=== PATIENT | female | born 2000 | race Hispanic/Latino ===

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

== ENCOUNTER 2022-06-25 13:31 | Emergency (ER) | payer MEDICAID ==
[~2022-06-25] VITALS: Ht 147.3 cm; Wt 45.4 kg
[~2022-06-25 13:31] MED LIST: AZIT250T9 PO; IBUP-2070 PO; PSEU120T62 PO
[2022-06-25 13:32] VITALS: BP 121/79
[2022-06-25] MEDS ORDERED: ACETAMINOPHEN 500 MG TABLET PO ONE (15:00)
== END 2022-06-25 15:46 | disposition home or self-care (01) ==
LOC: EDH 13:31
DX: S92.902A Unspecified fracture of left foot, initial encounter for closed fracture (principal); Z79.1 Long term (current) use of non-steroidal anti-inflammatories (NSAID); Z79.2 Long term (current) use of antibiotics; Z79.899 Other long term (current) drug therapy; Z88.1 Allergy status to other antibiotic agents; X50.1XXA Overexertion from prolonged static or awkward postures, initial encounter; Y93.89 Activity, other specified; Y92.89 Other specified places as the place of occurrence of the external cause; Y99.8 Other external cause status
CPT/HCPCS: 29515; 73620

== ENCOUNTER 2022-10-23 22:27 | Emergency (ER) | payer MEDICAID ==
[~2022-10-23] VITALS: Ht 144.8 cm; Wt 45.0 kg
[2022-10-23 22:58] VITALS: BP 128/78
[2022-10-23 23:10] LABS: APPEARANCE,URINE CLOUDY (CLEAR); BILIRUBIN,URINE NEGATIVE (NEGATIVE); COLOR,URINE LIGHT-YELLOW (YELLOW); GLUCOSE, URINE (UA) NEGATIVE (NEGATIVE); KETONES,URINE NEGATIVE (NEGATIVE); LEUKOCYTE ESTERASE ,URINE 500 Leu/uL (NEGATIVE); NITRATE,URINE NEGATIVE (NEGATIVE); OCCULT BLOOD,URINE SMALL (NEGATIVE); PROTEIN,URINE 50 mg/dL (NEGATIVE); UROBILINOGEN,URINE 0.2 mg/dL (0.2-1.0)
[2022-10-23 23:14] LABS: MUCUS,URINE RARE LPF (None Seen); RBC,URINE 26-50 /HPF (0-1); SQUAMOUS EPITHELIAL CELL,UR FEW /HPF (0-2); WBC,URINE TNTC /HPF (0-1)
[2022-10-23] MEDS ORDERED: MACR100 PO (23:44)
== END 2022-10-24 00:12 | disposition home or self-care (01) ==
LOC: EDH 22:27
DX: N39.0 Urinary tract infection, site not specified (principal); Z88.1 Allergy status to other antibiotic agents
CPT/HCPCS: 81001; 81025; 87077; 87088; 87186

== ENCOUNTER 2022-11-25 23:16 | Emergency (ER) | payer MEDICAID ==
[~2022-11-25] VITALS: Ht 147.3 cm; Wt 40.8 kg
[~2022-11-25 23:16] MED LIST changes: +MACR100 PO
[2022-11-25 23:21] VITALS: O2SAT 98
[2022-11-25 23:22] VITALS: BP 98/56; PULSE 107; RESP 18
[2022-11-26] LABS: RAPID GROUP A STREP negative (NEGATIVE)
[2022-11-26 00:05] LABS: SARS-CoV-2, RNA, NAAT NEGATIVE SARS CoV-2 (NEGATIVE)
[2022-11-26 00:09] LABS: INFLUENZA TYPE A Negative For Type A (NEGATIVE); INFLUENZA TYPE B Negative For Type B (NEGATIVE)
== END 2022-11-26 00:19 | disposition home or self-care (01) ==
LOC: EDH 23:16
DX: J06.9 Acute upper respiratory infection, unspecified (principal); Z88.1 Allergy status to other antibiotic agents; Z20.822 Contact with and (suspected) exposure to COVID-19
CPT/HCPCS: 99283; 87635; 87880; 87804 ×2; C9803

== ENCOUNTER 2023-09-21 20:51 | Emergency (ER) | payer MEDICAID ==
[~2023-09-21] VITALS: Ht 147.3 cm; Wt 44.5 kg
[2023-09-21 21:25] LABS: HCG,QUALITATIVE URINE POSITIVE (NEGATIVE)
[2023-09-21 21:26] LABS: APPEARANCE,URINE CLOUDY (CLEAR); BILIRUBIN,URINE NEGATIVE (NEGATIVE); COLOR,URINE LIGHT-YELLOW (YELLOW); GLUCOSE, URINE (UA) NEGATIVE (NEGATIVE); KETONES,URINE NEGATIVE (NEGATIVE); LEUKOCYTE ESTERASE ,URINE NEGATIVE Leu/uL (NEGATIVE); NITRATE,URINE NEGATIVE (NEGATIVE); OCCULT BLOOD,URINE NEGATIVE (NEGATIVE); PROTEIN,URINE NEGATIVE (NEGATIVE); UROBILINOGEN,URINE 0.2 mg/dL (0.2-1.0)
[2023-09-21 21:30] LABS: BACTERIA,URINE RARE /HPF (None Seen); MUCUS,URINE RARE LPF (None Seen); SQUAMOUS EPITHELIAL CELL,UR MOD /HPF (0-2); WBC CLUMP FEW /HPF (0-1); YEAST,URINE BUDDING MOD /HPF (None Seen)
[2023-09-21 22:59] VITALS: BP 112/65; PULSE 77; RESP 18; O2SAT 99
== END 2023-09-21 23:02 | disposition home or self-care (01) ==
LOC: EDH 20:53
DX: O26.891 Other specified pregnancy related conditions, first trimester (principal); R10.9 Unspecified abdominal pain; R10.2 Pelvic and perineal pain; Z88.1 Allergy status to other antibiotic agents
CPT/HCPCS: 36415; 76801; 81001; 81025; 84702; 87088

== ENCOUNTER 2024-02-24 12:57 | Emergency (ER) | payer MEDICAID ==
[~2024-02-24] VITALS: Ht 147.3 cm; Wt 56.7 kg
[~2024-02-24 12:57] MED LIST changes: +DOCU-116 PO; +DOXY1TAB3 PO; +ONDA-243 PO
[2024-02-24 14:27] VITALS: BP 103/59; PULSE 89; RESP 19; TEMP 98.5; O2SAT 96
[2024-02-24] MEDS: acetaMINOPHEN 500 MG TABLET PO ONE (14:48)
== END 2024-02-24 14:53 | disposition home or self-care (01) ==
LOC: EDH 12:57
DX: O9A.212 Injury, poisoning and certain other consequences of external causes complicating pregnancy, second trimester (principal); S93.491A Sprain of other ligament of right ankle, initial encounter; Z3A.25 25 weeks gestation of pregnancy; Z79.899 Other long term (current) drug therapy; Z88.1 Allergy status to other antibiotic agents; X50.1XXA Overexertion from prolonged static or awkward postures, initial encounter; Y93.89 Activity, other specified; Y92.89 Other specified places as the place of occurrence of the external cause; Y99.8 Other external cause status
CPT/HCPCS: 73610

== ENCOUNTER 2024-03-10 23:23 | Emergency (ER) | payer MEDICAID ==
[~2024-03-10] VITALS: Ht 147.3 cm; Wt 59.4 kg
[2024-03-10 23:54] LABS: SARS-CoV-2, RNA, NAAT NEGATIVE SARS CoV-2 (NEGATIVE)
[2024-03-10 23:56] LABS: RAPID GROUP A STREP negative (NEGATIVE)
[2024-03-11 00:02] LABS: INFLUENZA TYPE B Negative For Type B (NEGATIVE)
[2024-03-11 00:03] LABS: INFLUENZA TYPE A Positive For Type A (NEGATIVE)
[2024-03-11] MEDS ORDERED: OSEL75 PO (00:22)
--- NOTE | 2024-03-11 00:22 | ERN ---
ED Note History of Present Illness Stated Complaint: C/O COUGH, FEVER, SORE THROAT, HEADACHES, BODY ACH Chief Complaint: Cough Time Seen by MD: 23:30 Time Seen by Midlevel: 23:30 Dictation: The patient is a 23-year-old female with no past medical history who presents to the emergency department with complaints of cough, nasal congestion, sore throat, fever onset Sunday. Patient is28 weeks . G1 patient denies any abdominal pain, nausea or vomiting, vaginal bleeding or discharge. Allergies: Coded Allergies: cephalexin (Unverified Allergy, Unknown, 12/12/20) Home Meds Active Scripts Oseltamivir Phosphate (Tamiflu) 75 Mg Cap, 75 MG PO BID for 5 Days, #10 CAP Prov:CASTRO ANN SCIENCE PROFESSOR 03/11/24 Ondansetron (Ondansetron Odt) 4 Mg Tab.rapdis, 4 MG PO BID for 10 Days, #20 TAB Prov:NIKA LÓPEZ 10/13/23 Doxylamine/Pyridoxine HCl (Diclegis Dr 10-10 mg Tablet) 10 Mg-10 Mg Tablet.dr, 1 EACH PO TID for 10 Days, #30 TAB Prov:NIKA LÓPEZ 10/13/23 Docusate Sodium (Colace) 100 Mg Capsule, 100 MG PO TID for constipation for 10 Days, #30 CAP 0 Refills Prov:NIKA LÓPEZ 10/13/23 Nitrofurantoin/Nitrofuran Mac (Macrobid) 100 Mg Cap, 1 CAP PO BID for 7 Days, #14 CAP 0 Refills Prov:OFE MENDIETA [facility] 10/23/22 Pseudoephedrine HCl (Sudafed 12 Hour) 120 Mg Tablet.er, 120 MG PO BID for 5 Days, #10 TAB Prov:ELOISE BUCKLEY 12/12/20 Ibuprofen (Ibuprofen) 600 Mg Tablet, 600 MG PO Q6H PRN for PAIN, #15 TAB Prov:ELOISE BUCKLEY 12/12/20 Azithromycin (Azithromycin) 250 Mg Tablet, 250 MG PO DAILY for zpack for 5 Days, #6 TAB Prov:ELOISE BUCKLEY 12/12/20 Past Medical History Past Medical History: No Pertinent History Additional Past Medical Hx: SEASONAL ALLERGIES Surgical History: None Family History: Negative Social History: Negative LMP: August 27, 2023 : 1 Para: 0 Aborts: 0 RN Note Reviewed/Agreed w/PFSH: Yes Review of System Dictation Constitutional: Negative for chills, and weight loss positive for fever Eyes: Negative for injury, pain,redness, and discharge ENT: Negative for injury,pain or swelling positive for nasal congestion, sore throat Cardiovascular: Negative for chest pain, palpitations, and edema Respiratory: Negative for shortness of breath, and wheezing, positive for cough Abdomen/GI: Negative for abdominal pain, nausea, vomiting, diarrhea, and constipation Back: Negative for injury and pain : Negative for injury, bleeding and discharge MS/Extremity: Negative for injury and deformity Skin: Negative for rash, and discoloration Neuro: Negative for headache, weakness, numbness, tingling, and seizure Psych: Negative for suicide ideation, homicidal ideation, and hallucinations Initial Vital Sign VS Vital Signs Date Time Temp Pulse Resp B/P (MAP) Pulse Ox O2 Delivery O2 Flow Rate FiO2 03/10/24 23:28 98.2 102 20 115/72 96 Room Air Physical Exam Dictation Vital Signs reviewed General Appearance: Alert, oriented x 3, no acute distress, well developed, nourished. Head and Face: non-traumatic. Eyes: PERRL, pink conjunctivas, eyelid no trauma, anterior chamber with arcus senilis. Ears: Pinnas intact and no signs of trauma or erythema ear canals clear and no discharge TM no erythema Nose: No discharge, no bleeding. Oropharynx: Mouth normal, tongue pink. pharynx clear,no erythema, tonsils no exudates, no abscesses noted, mucous membrane moist Neck: Supple, non-tender, no thyromegaly, no masses, no JVD, no bruits Breast:Deferred Chest:No tenderness, no crepitus, no paradoxical movement, no retractions Lungs:Clear, well-ventilated, symmetric, no rales, no wheezing, no rhonchi, no stridor, good breath sounds bilaterally Heart: Regular rate, regular rhythm, no murmur, no gallops Vascular: no peripheral edema, Abdomen: Firm, positive bowel sounds, distended, no guarding, nontender, no rebound, no masses no hepatomegaly, no splenomegaly, no Maldonado's sign, no hernias. Rectal: Deferred Genital: Deferred Neurological: Normal speech, motor function intact, sensory function intact Musculoskeletal: Neck nontender, full range of motion, back nontender, full range of motion, Extremities: nontender, full range of motion Skin: Color pink, dry, no turgor, no rash, no lacerations, no abrasions, no contusions. Lymphatic: Deferred Results (Laboratory/Radiology) Laboratory/Radiology Laboratory Tests Test 03/10/24 23:30 Influenza Type A Antigen Positive For Type A Influenza Type B Antigen Negative For Type B SARS-CoV-2, RNA, NAAT NEGATIVE SARS CoV-2 Group A Streptococcus Rapid negative (NEGATIVE) Labs Reviewed?: Yes ED Course ED Course Orders Procedure Category Date Status Time Covid Rna Naat LAB 03/10/24 Complete 23:26 Influenza Type A & B, LAB 03/10/24 Complete Rapid 23:26 Rapid (Group A Strep) LAB 03/10/24 Complete 23:26 *Nursing CPOE 03/10/24 Transmitted Communication: 23:52 Oseltamivir Phosphate PHA 03/11/24 Complete (Tamiflu) 00:30 Current Medications Medications (Trade) Dose Ordered Sig/Jesica Route PRN Reason Start Time Stop Time Status Last Admin Dose Admin Oseltamivir Phosphate (Tamiflu) 75 mg ONCE ONCE PO 03/11/24 00:30 03/11/24 00:31 DC Vital Signs Date Time Temp Pulse Resp B/P (MAP) Pulse Ox O2 Delivery O2 Flow Rate FiO2 03/10/24 23:28 98.2 102 20 115/72 96 Room Air Medical Decision Making MDM The patient is a 23-year-old female with no past medical history who presents to the emergency department with complaints of cough, nasal congestion, sore throat, fever onset Sunday. Patient is28 weeks . G1 patient denies any abdominal pain, nausea or vomiting, vaginal bleeding or discharge. Patient tested positive for flu. Will be started on Tamiflu due to high-risk due to . heart tones 160. Patient in no acute distress. Stable vital signs. Differential diagnosis: COVID-19 infection, flu, strep Need for hospitalization: Patient does not meet criteria for hospitalization. There are no social concerns with this patient. DX & DISP Disposition: Discharge Departure Impression: Primary Impression: Influenza Additional Impression: Condition: Stable Scripts Oseltamivir Phosphate (Tamiflu) 75 Mg Cap 75 MG PO BID for 5 Days, #10 CAP Prov: CASTRO ANN SCIENCE PROFESSOR 03/11/24 Additional Instructions: You tested positive for flu A. You will be treated with Tamiflu. Take medications as prescribed. You may take Tylenol as needed for fevers. Please follow up with your OBGYN and PCP. Please return to ER if symptoms worsen. FOLLOW-UP WITH PRIMARY CARE PROVIDER IN 1 TO 2 DAYS. TAKE MEDICATIONS DIRECTED HERE IN THE EMERGENCY ROOM. OKAY TO CONTINUE HOME MEDICATIONS UNLESS OTHERWISE DISCUSSED DURING YOUR VISIT IN THE EMERGENCY ROOM TODAY. RETURN TO YOUR NEAREST EMERGENCY ROOM IF SYMPTOMS WORSEN OR IF THERE IS NO IMPROVEMENT. CALL 911 IF YOU NEED IMMEDIATE ASSISTANCE. TAKE TYLENOL [id number]-[id number] NEEDED AND IF NO CONTRAINDICATIONS ARE PRESENT. INCREASE ORAL HYDRATION. A WO UND CULTURE OR URINE CULTURE WAS ORDERED HERE IN THE EMERGENCY ROOM DEPARTMENT PLEASE FOLLOW-UP WITH PRIMARY CARE PROVIDER AND ADVISE THEM TO GET REPEAT PORTS FROM OUR FACILITY. IF YOU HAD ANY GAYATHRI WRAP/SPLINTS THAT WERE APPLIED HERE, PLEASE DO NOT REMOVE THEM UNTIL YOU SEE YOUR PRIMARY CARE OR SPECIALTY. Referrals: RODNEY FABIAN MD (PCP) Time of Disposition: 02:26 I have reviewed the case, and I agree with, Diagnosis and Plan CASTRO ANN SCIENCE PROFESSOR Mar 11, 2024 00:22
--- NOTE | 2024-03-11 02:21 | NUR ---
HEART BEAT AT 162
[2024-03-11 02:23] VITALS: BP 124/69; PULSE 98; RESP 20; TEMP 98; O2SAT 97
[2024-03-11] MEDS: OSELTAMIVIR PHOSPHATE 75 MG CAP PO ONE (02:34)
== END 2024-03-11 02:44 | disposition home or self-care (01) ==
LOC: EDH 23:23
DX: O98.513 Other viral diseases complicating pregnancy, third trimester (principal); J11.1 Influenza due to unidentified influenza virus with other respiratory manifestations; Z20.822 Contact with and (suspected) exposure to COVID-19; Z3A.28 28 weeks gestation of pregnancy; Z79.899 Other long term (current) drug therapy; Z88.1 Allergy status to other antibiotic agents
CPT/HCPCS: 87635; 87804; 87880; 99283

== ENCOUNTER 2024-03-25 23:15 | Observation (INO) | payer MEDICAID ==
[~2024-03-25] VITALS: Ht 147.3 cm; Wt 61.7 kg
[~2024-03-25 23:15] MED LIST changes: +OSEL75 PO
[2024-03-25 23:16] VITALS: BP 115/74; PULSE 95; RESP 20; TEMP 98.3
--- NOTE | 2024-03-25 23:22 | NUR ---
REPORT GIVEN TO CHAYA AT [facility]; PT IN STABLE CONDITION FOR TRANSPORT TO UNIT.
[2024-03-25 23:48] LABS: APPEARANCE,URINE CLEAR (CLEAR); BILIRUBIN,URINE NEGATIVE (NEGATIVE); COLOR,URINE LIGHT-YELLOW (YELLOW); GLUCOSE, URINE (UA) NEGATIVE (NEGATIVE); KETONES,URINE NEGATIVE (NEGATIVE); LEUKOCYTE ESTERASE ,URINE 25 Leu/uL (NEGATIVE); NITRATE,URINE NEGATIVE (NEGATIVE); OCCULT BLOOD,URINE NEGATIVE (NEGATIVE); PROTEIN,URINE NEGATIVE (NEGATIVE); UROBILINOGEN,URINE 0.2 mg/dL (0.2-1.0)
[2024-03-25 23:49] LABS: ADD UA MICROSCOPIC YES
[2024-03-25 23:52] LABS: MUCUS,URINE RARE LPF (None Seen); RBC,URINE 0-1 /HPF (0-1); SQUAMOUS EPITHELIAL CELL,UR FEW /HPF (0-2)
[2024-03-25 23:54] LABS: AMPHET/METH SCREEN,URINE NEGATIVE (NEGATIVE); BARBITURATE SCREEN, URINE NEGATIVE (NEGATIVE); BENZODIAZEPINES SCREEN,URINE NEGATIVE (NEGATIVE); CANNABINOID SCREEN,URINE NEGATIVE (NEGATIVE); COCAINE SCREEN,URINE NEGATIVE (NEGATIVE); OPIATE SCREEN,URINE NEGATIVE (NEGATIVE); PHENCYCLIDINE SCREEN,URINE NEGATIVE (NEGATIVE)
[2024-03-26] MEDS: LACTATED RINGERS 1000ML 1,000 ML IV SCH (00:10)
[2024-03-26 03:19] LABS: HEMATOCRIT 27.6 % (36-48); MEAN CORPUSCULAR HGB CONC 31.9 g/dL (32.0-36.0); MEAN CORPUSCULAR VOLUME 81.4 fL (80-100); RED BLOOD CELL COUNT(AUTO) 3.39 MIL/uL (4.00-5.50); RED CELL DISTRIBUTION WIDTH 15.9 % (11.0-15.5); WHITE BLOOD COUNT (AUTO) 13.5 K/uL (4.8-10.8)
[2024-03-26 03:52] LABS: HIV 1&2 ANTIBODY Non-Reactive (Negative)
[2024-03-26 03:54] LABS: HIV-1 p24 Antigen Non-Reactive (Negative)
[2024-03-26 16:11] LABS: RAPID PLASMA REAGIN NONREACTIVE (NONREACTIVE)
== END 2024-03-26 04:15 | disposition home or self-care (01) ==
LOC: EDH 23:15 → LDH 23:16
PROVIDERS: ADMIT Obstetrics & Gynecology; ATTEND Obstetrics & Gynecology
DX: O26.893 Other specified pregnancy related conditions, third trimester (principal); R10.31 Right lower quadrant pain; O99.891 Other specified diseases and conditions complicating pregnancy; M54.50 Low back pain, unspecified; Z3A.30 30 weeks gestation of pregnancy; Z79.899 Other long term (current) drug therapy; Z98.890 Other specified postprocedural states
CPT/HCPCS: 80305; 81001; 96372; 96361; 96360; 85027; 86592; 86850; 86900; 86901; 87340; 86701; 87390; 36415; G0378 ×5; G0379; J7120; J3105; 59025

== ENCOUNTER 2024-04-26 18:54 | Emergency (ER) | payer MEDICAID ==
[~2024-04-26] VITALS: Ht 147.3 cm; Wt 65.8 kg
[2024-04-26 19:52] LABS: BASOPHILS # (AUTO) 0.04 K/uL (0.00-0.20); BASOPHILS % (AUTO) 0.4 % (0.0-5.0); EOSINOPHILS # (AUTO) 0.35 K/uL (0.00-0.70); EOSINOPHILS % (AUTO) 3.2 % (0.0-8.0); HEMATOCRIT 28.3 % (36-48); IMMATURE GRANULOCYTE ABSOLUTE 0.16 K/uL (0-1); LYMPHOCYTES # (AUTO) 1.8 K/uL (1.0-4.8); MEAN CORPUSCULAR HEMOGLOBIN 24.1 pg (27.0-33.0); MEAN CORPUSCULAR HGB CONC 31.4 g/dL (32.0-36.0); MEAN CORPUSCULAR VOLUME 76.5 fL (80-100); MONOCYTES # (AUTO) 1.2 K/uL (0.1-1.0); MONOCYTES % (AUTO) 10.8 % (3.0-13.0); NEUTROPHILS # (AUTO) 7.3 K/uL (1.8-7.7); NEUTROPHILS % (AUTO) 67.1 % (40.0-77.0); PLATELET COUNT (AUTO) 360 K/uL (130-400); RED CELL DISTRIBUTION WIDTH 17.9 % (11.0-15.5); WHITE BLOOD COUNT (AUTO) 10.8 K/uL (4.8-10.8)
[2024-04-26 20:02] LABS: APPEARANCE,URINE CLEAR (CLEAR); BILIRUBIN,URINE NEGATIVE (NEGATIVE); COLOR,URINE LIGHT-YELLOW (YELLOW); GLUCOSE, URINE (UA) NEGATIVE (NEGATIVE); KETONES,URINE NEGATIVE (NEGATIVE); LEUKOCYTE ESTERASE ,URINE NEGATIVE Leu/uL (NEGATIVE); NITRATE,URINE NEGATIVE (NEGATIVE); OCCULT BLOOD,URINE NEGATIVE (NEGATIVE); PH,URINE 6.5 (5.0-8.0); PROTEIN,URINE NEGATIVE (NEGATIVE); UROBILINOGEN,URINE 0.2 mg/dL (0.2-1.0)
[2024-04-26 20:08] LABS: ADD UA MICROSCOPIC NO
[2024-04-26 20:21] LABS: CREATININE 0.5 mg/dL (0.5-1.0); MAGNESIUM 1.5 mg/dL (1.80-2.40); POTASSIUM 3.8 mmol/L (3.5-5.1)
--- NOTE | 2024-04-26 20:51 | ERN ---
General Chief Complaint: OB>20 weeks gest. Stated Complaint: SWELLING/TINGLING TO BUE, BLE X ONE MONTH Time Seen by MD: 19:29 Time Seen by Midlevel: 19:29 Source: patient History of Present Illness Initial Comments Patient is a 23-year-old female who is currently 34 weeks presenting to the emergency department with bilateral upper and lower extremity swelling/tingling. She was already seen her OBGYN for this issue and was told her symptoms were normal during this stage . Patient states that she was not believe this is normal and decided to report to the emergency department for further evaluation. On arrival she denies any focal weakness, dizziness, vision changes, headache, chest pain, shortness of breath, or any other symptoms at this time. Allergies: Coded Allergies: cephalexin (Unverified Allergy, Unknown, 03/25/24) Home Meds Active Scripts Oseltamivir Phosphate (Tamiflu) 75 Mg Cap, 75 MG PO BID for 5 Days, #10 CAP Prov:CASTRO ANN FIELD CONTROL INSPECTOR 03/11/24 Ondansetron (Ondansetron Odt) 4 Mg Tab.rapdis, 4 MG PO BID for 10 Days, #20 TAB Prov:NIKA LÓPEZ 10/13/23 Doxylamine/Pyridoxine HCl (Diclegis Dr 10-10 mg Tablet) 10 Mg-10 Mg Tablet.dr, 1 EACH PO TID for 10 Days, #30 TAB Prov:NIKA LÓPEZ 10/13/23 Docusate Sodium (Colace) 100 Mg Capsule, 100 MG PO TID for constipation for 10 Days, #30 CAP 0 Refills Prov:NIKA LÓPEZ 10/13/23 Nitrofurantoin/Nitrofuran Mac (Macrobid) 100 Mg Cap, 1 CAP PO BID for 7 Days, #14 CAP 0 Refills Prov:OFE MENDIETA FIELD CONTROL INSPECTOR 10/23/22 Pseudoephedrine HCl (Sudafed 12 Hour) 120 Mg Tablet.er, 120 MG PO BID for 5 Days, #10 TAB Prov:ELOISE BUCKLEY 12/12/20 Ibuprofen (Ibuprofen) 600 Mg Tablet, 600 MG PO Q6H PRN for PAIN, #15 TAB Prov:ELOISE BUCKLEY 12/12/20 Azithromycin (Azithromycin) 250 Mg Tablet, 250 MG PO DAILY for zpack for 5 Days, #6 TAB Prov:DUDLEYTALAVERACARLTONELOISE E BETINA 12/12/20 Past Medical History Past Medical History: No Pertinent History Medical History Other: SEASONAL ALLERGIES Past Surgical History: None Family History Family History: Negative Social History Social History: Negative Female( History) LMP: August 27, 2023 : 1 Para: 0 Aborts: 0 ROS Dictation CONSTITUTIONAL: Negative except for HPI HEAD/FACE: Negative except for HPI EENT: Negative except for HPI RESPIRATORY: Negative except for HPI GASTROINTESTINAL/ABDOMINAL: Negative except for HPI GENITOURINARY: Negative except for HPI MUSCULOSKELETAL: Negative except for HPI INTEGUMENTARY: Negative except for HPI NEUROLOGICAL/PSYCH: Negative except for HPI HEMATOLOGIC/LYMPHATIC: Negative except for HPI All Systems Negative, Except as noted above. 13 point review of systems assessed and all negative except for above. Physical Exam Physical Exam Dictation Vital Signs reviewed General Appearance: Alert, oriented x 3, no acute distress, well developed, nourished. Head and Face: non-traumatic. Eyes: PERRL, pink conjunctivas, eyelid no trauma, anterior chamber with arcus senilis. Ears: Pinnas intact and no signs of trauma or erythema ear canals clear and no discharge TM no erythema Nose: No discharge, no bleeding. Oropharynx: Mouth normal, tongue pink, pharynx clear,no erythema, tonsils no exudates, no abscesses noted, mucous membrane moist Neck: Supple, non-tender, no thyromegaly, no masses, no JVD, no bruits Breast:Deferred Chest:No tenderness, no crepitus, no paradoxical movement, no retractions Lungs:Clear, well-ventilated, symmetric, no rales, no wheezing, no rhonchi, no stridor, good breath sounds bilaterally Heart: Regular rate, regular rhythm, no murmur, no gallops Vascular: no peripheral edema, Abdomen: Soft, positive bowel sounds, nondistended, no guarding, nontender, no rebound, no masses no hepatomegaly, no splenomegaly, no Maldonado's sign, no hernias. Rectal: Deferred Genital: Deferred Neurological: Normal speech, motor function intact, sensory function intact Musculoskeletal: Neck nontender, full range of motion, back nontender, full range of motion, Extremities: nontender, full range of motion Skin: Color pink, dry, no turgor, no rash, no lacerations, no abrasions, no contusions. Lymphatic: Deferred Results Laboratory and Microbiology Lab and Micro Result Laboratory Tests Test 04/26/24 19:46 04/26/24 19:50 White Blood Count 10.8 K/uL (4.8-10.8) Red Blood Count 3.70 MIL/uL (4.00-5.50) L Hemoglobin 8.9 g/dL (12.0-16.0) L Hematocrit 28.3 % (36-48) L Mean Corpuscular Volume 76.5 fL (80-100) L Mean Corpuscular Hemoglobin 24.1 pg (27.0-33.0) L Mean Corpuscular Hemoglobin Concent 31.4 g/dL (32.0-36.0) L Red Cell Distribution Width 17.9 % (11.0-15.5) H Platelet Count 360 K/uL (130-400) Mean Platelet Volume 10.4 fL (7.5-10.5) Immature Granulocyte % (Auto) 1.5 % (0-1) H Neutrophils (%) (Auto) 67.1 % (40.0-77.0) Lymphocytes (%) (Auto) 17.0 % (21.0-51.0) L Monocytes (%) (Auto) 10.8 % (3.0-13.0) Eosinophils (%) (Auto) 3.2 % (0.0-8.0) Basophils (%) (Auto) 0.4 % (0.0-5.0) Neutrophils # (Auto) 7.3 K/uL (1.8-7.7) Lymphocytes # (Auto) 1.8 K/uL (1.0-4.8) Monocytes # (Auto) 1.2 K/uL (0.1-1.0) H Eosinophils # (Auto) 0.35 K/uL (0.00-0.70) Basophils # (Auto) 0.04 K/uL (0.00-0.20) Absolute Immature Granulocyte (auto 0.16 K/uL (0-1) Nucleated Red Blood Cells 1.0 % (0.0-0.19) H Red Blood Cell Morphology See comments Sodium Level 139 mmol/L (136-145) Potassium Level 3.8 mmol/L (3.5-5.1) Chloride Level 104 mmol/L (101-111) Carbon Dioxide Level 23 mmol/L (21-32) Blood Urea Nitrogen 6 mg/dL (7-18) L Creatinine 0.5 mg/dL (0.5-1.0) Glomerular Filtration Rate Calc 137 mL/min (>90) Random Glucose 109 mg/dL (70-105) H Total Calcium 9.2 mg/dL (8.5-10.1) Magnesium Level 1.50 mg/dL (1.80-2.40) L Urine Color LIGHT-YELLOW (YELLOW) Urine Appearance CLEAR (CLEAR) Urine pH 6.5 (5.0-8.0) Urine Specific [place] 1.012 (1.001-1.031) Urine Protein NEGATIVE mg/dL (NEGATIVE) Urine Glucose (UA) NEGATIVE mg/dL (NEGATIVE) Urine Ketones NEGATIVE mg/dL (NEGATIVE) Urine Occult Blood NEGATIVE (NEGATIVE) Urine Nitrate NEGATIVE (NEGATIVE) Urine Bilirubin NEGATIVE mg/dL (NEGATIVE) Urine Urobilinogen 0.2 mg/dL (0.2-1.0) Urine Leukocyte Esterase NEGATIVE Albaro/uL Labs Reviewed?: Yes MDM MDM: Patient is a 23-year-old female who is currently 34 weeks presenting to the emergency department with bilateral upper and lower extremity swelling/tingling. She was already seen her OBGYN for this issue and was told her symptoms were normal during this stage . Patient states that she was not believe this is normal and decided to report to the emergency department for further evaluation. On arrival she denies any focal weakness, dizziness, vision changes, headache, chest pain, shortness of breath, or any other symptoms at this time. On physical examination patient is in no acute distress. She was alert and oriented x4. There was no swelling to bilateral upper and lower extremities. Her CBC and chemistries unremarkable. Her magnesium level was slightly low at 1.5. 400 mg of p.o. magnesium was administered and patient was advised to follow up with your OBGYN or return to the ER for any new or worsening symptoms. She specifically denies any abdominal pain, cramping, vaginal bleeding, or any other abdominal complaints. Differential diagnosis: Dehydration, electrolyte abnormality, 3rd trimester There are no social concerns with this patient. Prescription drug management Prescriptions will include: None Medical management and examination interpretation discussions were had by me with other qualified healthcare professionals as indicated for the patient's care. ED Course Orders Procedure Category Date Status Time Cbc With Differential LAB 04/26/24 Complete 19:35 Basic Metabolic Panel LAB 04/26/24 Complete 19:35 Magnesium LAB 04/26/24 Complete 19:35 Urinalysis Profile LAB 04/26/24 Complete 19:35 Magnesium Oxide PHA 04/26/24 Complete (Mag-Ox) 21:00 Current Medications Medications (Trade) Dose Ordered Sig/Jesica Route PRN Reason Start Time Stop Time Status Last Admin Dose Admin Magnesium Oxide (Mag-Ox) 400 mg ONCE ONCE PO 04/26/24 21:00 04/26/24 21:01 DC 04/26/24 20:52 Vital Signs Date Time Temp Pulse Resp B/P (MAP) Pulse Ox O2 Delivery O2 Flow Rate FiO2 04/26/24 20:59 98.8 90 18 130/75 98 Room Air* 0 21 04/26/24 19:02 97.7 105 16 138/97 96 Room Air* 0 04/26/24 18:56 97.7 105 16 138/97 96 Room Air 0 DX & DISP Disposition: Discharge Departure Impression: Primary Impression: Third trimester Additional Impression: Hypomagnesemia Condition: Stable Additional Instructions: Your blood work today shows a low magnesium level. This was replaced in the emergency department. Follow up with the primary care doctor in 2-3 days for repeat evaluation. Return to the ER for any new or worsening symptoms There is an OBGYN in the [facility] that I highly recommend. Her name is Dr. Tessie Durbin Address: [address] [place] [id number] Referrals: RODNEY FABIAN MD (PCP) GERARDO VICTOR MD, JAROD MD Time of Disposition: 21:05 I have reviewed the case, and I agree with, Diagnosis and Plan I performed the substantive portion of the visit. I have reviewed and personally made and approve the management plan that is documented in the note by myself or the KYLE. I acknowledge for responsibility for the patient's management plan. NIKA LÓPEZ Apr 26, 2024 20:51
[2024-04-26] MEDS: MAGNESIUM OXIDE 400 MG TABLET PO ONE (20:52)
[2024-04-26 20:59] VITALS: BP 130/75; PULSE 90; RESP 18; TEMP 98.8; O2SAT 98
== END 2024-04-26 21:10 | disposition home or self-care (01) ==
LOC: EDH 18:54
DX: O99.283 Endocrine, nutritional and metabolic diseases complicating pregnancy, third trimester (principal); E83.42 Hypomagnesemia; Z3A.34 34 weeks gestation of pregnancy; Z79.899 Other long term (current) drug therapy; Z88.1 Allergy status to other antibiotic agents
CPT/HCPCS: 36415; 80048; 81003; 83735; 85025; 99283

== ENCOUNTER 2025-02-09 17:32 | Emergency (ER) | payer OTHER, MEDICAID ==
[~2025-02-09] VITALS: Ht 147.3 cm; Wt 59.0 kg
[~2025-02-09 17:32] MED LIST changes: +IBUP-1492 PO; -IBUP-2070 PO
--- NOTE | 2025-02-09 17:49 | ERN ---
ED Note History of Present Illness Stated Complaint: N/V, ABD CRAMPING Chief Complaint: Nausea,Vomiting,Diarrhea Time Seen by MD: 17:37 Time Seen by Midlevel: 17:37 Dictation: The patient is a 24-year old female with no past medical history who presents to the emergency department with complains of nausea and non bloody vomit onset this morning after eating egg. Patient reports epigastric pain. Denies any fevers, diarrhea or constipation. Allergies: Coded Allergies: cephalexin (Unverified Allergy, Unknown, 03/25/24) Home Meds Active Scripts Oseltamivir Phosphate (Tamiflu) 75 Mg Cap, 75 MG PO BID for 5 Days, #10 CAP Prov:CASTRO ANN CANARY BREEDER 03/11/24 Ondansetron (Ondansetron Odt) 4 Mg Tab.rapdis, 4 MG PO BID for 10 Days, #20 TAB Prov:NIKA LÓPEZ [facility] 10/13/23 Doxylamine/Pyridoxine HCl (Diclegis Dr 10-10 mg Tablet) 10 Mg-10 Mg Tablet.dr, 1 EACH PO TID for 10 Days, #30 TAB Prov:NIKA LÓPEZ [facility] 10/13/23 Docusate Sodium (Colace) 100 Mg Capsule, 100 MG PO TID for constipation for 10 Days, #30 CAP 0 Refills Prov:NIKA LÓPEZ [facility] 10/13/23 Nitrofurantoin/Nitrofuran Mac (Macrobid) 100 Mg Cap, 1 CAP PO BID for 7 Days, #14 CAP 0 Refills Prov:OFE MENDIETA [facility] 10/23/22 Pseudoephedrine HCl (Sudafed 12 Hour) 120 Mg Tablet.er, 120 MG PO BID for 5 Days, #10 TAB Prov:ELOISE BUCKLEY 12/12/20 Ibuprofen (Ibuprofen) 600 Mg Tablet, 600 MG PO Q6H PRN for PAIN, #15 TAB Prov:ELOISE BUCKLEY 12/12/20 Azithromycin (Azithromycin) 250 Mg Tablet, 250 MG PO DAILY for zpack for 5 Days, #6 TAB Prov:ELOISE BUCKLEY 12/12/20 Past Medical History Past Medical History: Sinusitis, Other Additional Past Medical Hx: SEASONAL ALLERGIES Surgical History: None Family History: Negative Social History: Negative LMP: Jan 15, 2025 : 1 Para: 0 Aborts: 0 RN Note Reviewed/Agreed w/PFSH: Yes Review of System Dictation Constitutional: Negative for fever,chills, and weight loss Eyes: Negative for injury, pain,redness, and discharge ENT: Negative for injury,pain or swelling Cardiovascular: Negative for chest pain, palpitations, and edema Respiratory: Negative for shortness of breath, cough, and wheezing, Abdomen/GI: Negative for diarrhea, and constipation positive for abdominal pain, nausea, vomiting Back: Negative for injury and pain : Negative for injury, bleeding and discharge MS/Extremity: Negative for injury and deformity Skin: Negative for rash, and discoloration Neuro: Negative for headache, weakness, numbness, tingling, and seizure Psych: Negative for suicide ideation, homicidal ideation, and hallucinations Initial Vital Sign VS Vital Signs Date Time Temp Pulse Resp B/P (MAP) Pulse Ox O2 Delivery O2 Flow Rate FiO2 02/09/25 17:33 98.8 119 20 123/77 98 Room Air 0 02/09/25 23:04 21 Physical Exam Dictation Vital Signs reviewed General Appearance: Alert, oriented x 3, no acute distress, well developed, nourished. Head and Face: non-traumatic. Eyes: PERRL, pink conjunctivas, eyelid no trauma, anterior chamber with arcus senilis. Ears: Pinnas intact and no signs of trauma or erythema ear canals clear and no discharge TM no erythema Nose: No discharge, no bleeding. Oropharynx: Mouth normal, tongue pink. pharynx clear,no erythema, tonsils no exudates, no abscesses noted, mucous membrane moist Neck: Supple, non-tender, no thyromegaly, no masses, no JVD, no bruits Breast:Deferred Chest:No tenderness, no crepitus, no paradoxical movement, no retractions Lungs:Clear, well-ventilated, symmetric, no rales, no wheezing, no rhonchi, no stridor, good breath sounds bilaterally Heart: Regular rate, regular rhythm, no murmur, no gallops Vascular: no peripheral edema, Abdomen: Soft, positive bowel sounds, nondistended, no guarding, nontender, no rebound, no masses no hepatomegaly, no splenomegaly, no Maldonado's sign, no hernias. Rectal: Deferred Genital: Deferred Neurological: Normal speech, motor function intact, sensory function intact Musculoskeletal: Neck nontender, full range of motion, back nontender, full range of motion, Extremities: nontender, full range of motion Skin: Color pink, dry, no turgor, no rash, no lacerations, no abrasions, no contusions. Lymphatic: Deferred Results (Laboratory/Radiology) Laboratory/Radiology Laboratory Tests Test 02/09/25 19:37 02/09/25 21:54 02/09/25 22:32 White Blood Count 16.4 K/uL (4.8-10.8) H Red Blood Count 4.84 MIL/uL (4.00-5.50) Hemoglobin 13.2 g/dL (12.0-16.0) Hematocrit 39.3 % (36-48) Mean Corpuscular Volume 81.2 fL (79-99) Mean Corpuscular Hemoglobin 27.3 pg (27.0-33.0) Mean Corpuscular Hemoglobin Concent 33.6 g/dL (32.0-36.0) Red Cell Distribution Width 16.9 % (11.0-15.5) H Platelet Count 342 K/uL (130-400) Mean Platelet Volume 9.6 fL (7.5-10.5) Immature Granulocyte % (Auto) 0.3 % (0-1) Neutrophils (%) (Auto) 93.6 % (40.0-77.0) H Lymphocytes (%) (Auto) 2.3 % (21.0-51.0) L Monocytes (%) (Auto) 2.6 % (3.0-13.0) L Eosinophils (%) (Auto) 1.1 % (0.0-8.0) Basophils (%) (Auto) 0.1 % (0.0-5.0) Neutrophils # (Auto) 15.4 K/uL (1.8-7.7) H Lymphocytes # (Auto) 0.4 K/uL (1.0-4.8) L Monocytes # (Auto) 0.4 K/uL (0.1-1.0) Eosinophils # (Auto) 0.18 K/uL (0.00-0.70) Basophils # (Auto) 0.02 K/uL (0.00-0.20) Absolute Immature Granulocyte (auto 0.05 K/uL (0-1) Nucleated Red Blood Cells 0.0 % (0.0-0.19) White Cell Morphology Comment See comments Sodium Level 141 mmol/L (136-145) Potassium Level 4.0 mmol/L (3.5-5.1) Chloride Level 101 mmol/L (101-111) Carbon Dioxide Level 26 mmol/L (21-32) Blood Urea Nitrogen 13 mg/dL (7-18) Creatinine 0.6 mg/dL (0.5-1.0) Glomerular Filtration Rate Calc 130 mL/min (>90) Random Glucose 106 mg/dL (70-105) H Total Calcium 8.5 mg/dL (8.5-10.1) Magnesium Level 1.70 mg/dL (1.80-2.40) L Total Bilirubin 0.7 mg/dL (0.2-1.0) Direct Bilirubin 0.1 mg/dL (0.0-0.3) Aspartate Amino Transf (AST/SGOT) 22 U/L (10-37) Alanine Aminotransferase (ALT/SGPT) 19 U/L (12-78) Alkaline Phosphatase 49 U/L (50-136) L Total Protein 8.0 g/dL (6.0-8.3) Albumin 3.6 g/dL (3.5-5.0) Lipase 26 U/L (16-77) Serum Test, Qualitative NEGATIVE (NEGATIVE) Lactic Acid Level 1.1 mmol/L (0.8-2.5) Urine Color YELLOW (YELLOW) Urine Appearance CLEAR (CLEAR) Urine pH 6.0 (5.0-8.0) Urine Specific Hopkins 1.030 (1.001-1.031) Urine Protein NEGATIVE mg/dL (NEGATIVE) Urine Glucose (UA) NEGATIVE mg/dL (NEGATIVE) Urine Ketones 60 mg/dL (NEGATIVE) H Urine Occult Blood NEGATIVE (NEGATIVE) Urine Nitrate NEGATIVE (NEGATIVE) Urine Bilirubin NEGATIVE mg/dL (NEGATIVE) Urine Urobilinogen 0.2 mg/dL (0.2-1.0) Urine Leukocyte Esterase NEGATIVE Albaro/uL Urine RBC 0-1 /HPF (0-1) Urine WBC 2-5 /HPF (0-1) H Urine Squamous Epithelial Cells RARE /HPF (0-2) Urine Bacteria None /HPF (None Seen) Urine Opiates Screen NEGATIVE (NEGATIVE) Urine Barbiturates Screen NEGATIVE (NEGATIVE) Urine Phencyclidine Screen NEGATIVE (NEGATIVE) Urine Amphetamines Screen NEGATIVE (NEGATIVE) Urine Benzodiazepines Screen NEGATIVE (NEGATIVE) Urine Cocaine Screen NEGATIVE (NEGATIVE) Urine Marijuana (THC) Screen NEGATIVE (NEGATIVE) REASON: Abdominal Pain ORDERING PHYSICIAN: CASTRO ANN PROCEDURE: ABD PEL W - CT ABDOMEN/PELVIS W/CONTRAST EXAM: CT Abdomen and Pelvis with IV contrast CLINICAL HISTORY: Abdominal pain. TECHNIQUE: Thin collimated axial CT images of the abdomen and pelvis with intravenous contrast were obtained, with sagittal and coronal reformatted images also submitted. A CT scan is done according to ALARA (As Low As Reasonably Achievable). COMPARISON: None. FINDINGS: Unremarkable visualized lung parenchyma. No focal abnormality within the liver, gallbladder, pancreas, spleen, adrenals, or kidneys. There is no obvious bowel wall thickening. Bowel loops are normal in caliber without evidence of obstruction or ileus. The appendix is normal. There is no abnormality within the urinary bladder. Unremarkable reproductive organs. 1.7 cm corpus luteal cyst in the left ovary. Abdominal and pelvic vessels are patent. No lymphadenopathy. No free fluid. There is no acute osseous abnormality. IMPRESSIONS: No acute process in the abdomen or pelvis. 1.7 cm corpus luteal cyst in the left ovary. /[facility] Labs Reviewed?: Yes ED Course ED Course Orders Procedure Category Date Status Time Cbc With Differential LAB 02/09/25 Complete 17:46 0.9%Nacl 1000ml (Ns PHA 02/09/25 Complete 1000ml) 18:00 Ondansetron 4mg Inj PHA 02/09/25 Complete (Zofran 4mg Inj) 18:00 Pantoprazole 40mg Inj PHA 02/09/25 Complete (Protonix 40mg Inj 18:00 Lipase LAB 02/09/25 Complete 17:46 Basic Metabolic Panel LAB 02/09/25 Complete 17:46 Hepatic Function Panel LAB 02/09/25 Complete 17:46 Testing, LAB 02/09/25 Complete Serum Hcg 17:46 Magnesium LAB 02/09/25 Complete 17:46 Ct Abdomen/Pelvis CT 02/09/25 Resulted W/Contrast 21:11 Urinalysis Profile LAB 02/09/25 Complete 21:11 Lactic Acid LAB 02/09/25 Complete 21:11 Blood Cult ANTONIO 02/09/25 In Process 21:11 Magnesium Oxide PHA 02/09/25 Complete (Mag-Ox) 22:00 Drug Screen Urine LAB 02/09/25 Complete 21:11 0.9%Nacl 1000ml (Ns PHA 02/09/25 In Process 1000ml) 23:00 Pantoprazole 40mg Inj PHA 02/09/25 Complete (Protonix 40mg Inj 23:00 Ondansetron 4mg Inj PHA 02/09/25 Complete (Zofran 4mg Inj) 23:00 Iohexol (Omnipaque) PHA 02/09/25 Complete 23:09 Ondansetron 4mg Inj PHA 02/10/25 Complete (Zofran 4mg Inj) 01:30 Acetaminophen 500mg PHA 02/10/25 Complete Tab (Tylenol 500mg T 02:00 Acetaminophen 325mg PHA 02/10/25 Complete Elixir (Tylenol 325 02:30 Current Medications Medications (Trade) Dose Ordered Sig/Jesica Route PRN Reason Start Time Stop Time Status Last Admin Dose Admin Acetaminophen (TYLenol 325MG ELIXIR) 650 mg ONCE ONCE PO 02/10/25 02:30 02/10/25 02:31 DC Acetaminophen (TYLenol 500MG TAB) 1,000 mg ONCE ONCE PO 02/10/25 02:00 02/10/25 02:01 DC Iohexol (Omnipaque) 75 ml STK-MED ONCE IV 02/09/25 23:09 02/09/25 23:09 DC Magnesium Oxide (Mag-Ox) 400 mg ONCE ONCE PO 02/09/25 22:00 02/09/25 22:01 DC 02/09/25 22:49 Ondansetron HCl (zoFRAN 4MG INJ) 4 mg ONCE ONCE IVP 02/09/25 18:00 02/09/25 18:01 DC Ondansetron HCl (zoFRAN 4MG INJ) 4 mg ONCE ONCE IVP 02/09/25 23:00 02/09/25 23:01 DC 02/09/25 22:51 Ondansetron HCl (zoFRAN 4MG INJ) 4 mg ONCE ONCE IVP 02/10/25 01:30 02/10/25 01:31 DC 02/10/25 01:47 Pantoprazole Sodium (PROTonix 40MG INJ) 40 mg ONCE ONCE IVP 02/09/25 18:00 02/09/25 18:01 DC Pantoprazole Sodium (PROTonix 40MG INJ) 40 mg ONCE ONCE IVP 02/09/25 23:00 02/09/25 23:01 DC 02/09/25 22:52 Sodium Chloride 1,000 ml @ 0 mls/hr ONCE ONCE IV 02/09/25 18:00 02/09/25 18:01 DC 02/09/25 22:49 Sodium Chloride 1,000 ml @ 0 mls/hr Q0M IV 02/09/25 23:00 03/11/25 22:59 Vital Signs Date Time Temp Pulse Resp B/P (MAP) Pulse Ox O2 Delivery O2 Flow Rate FiO2 02/10/25 01:53 100.0 107 18 100/60 98 Room Air* 0 02/10/25 00:25 98.8 106 18 114/51 100 Room Air* 0 21 02/09/25 23:04 98.6 98 18 105/54 97 Room Air* 0 21 02/09/25 17:33 98.8 119 20 123/77 98 Room Air 0 Medical Decision Making MDM The patient is a 24-year old female with no past medical history who presents to the emergency department with complains of nausea and non bloody vomit onset this morning after eating egg. Patient reports epigastric pain. Denies any fevers, diarrhea or constipation. CBC showed leukocytosis, no anemia, chemistry showed normal renal function, mildly hypomagnesemia, negative liver enzymes, negative lipase, lactic acid was 1.1. Urinalysis unremarkable, CT abdomen showed no acute pathology. Patient was rehydrated and giving antiemetics and tolerated p.o. intake. Patient has symptoms consistent with gastroenteritis. Patient's tachycardia improved. On physical exam patient is in no acute distress, nontoxic appearance, nontender abdomen. Delay of ED stay due to increased in symptoms and patient was initially not found in the lobby. Differential diagnosis: Gastroenteritis, gastritis, electrolyte imbalance, dehydration Need for hospitalization: Patient does not meet criteria for hospitalization. There are no social concerns with this patient. DX & DISP Disposition: Discharge Departure Impression: Primary Impression: Acute gastroenteritis Additional Impression: Leukocytosis Condition: Stable Scripts Dicyclomine HCl (Bentyl) 20 Mg Tab 1 TAB PO BID for irritable bowel symptoms for 30 Days, #60 TAB 0 Refills Prov: CASTRO ANN CANARY BREEDER 02/10/25 Ondansetron (Ondansetron Odt) 4 Mg Tab.rapdis 4 MG PO Q6HPRN PRN for nausea, #16 TAB 0 Refills Prov: CASTRO ANN NOHEMY 02/10/25 Additional Instructions: Your labs showed an elevated white count which could be due to the vomiting and dehydration. Your CT was normal. Please continue oral hydration as tolerated. Follow up with the your primary doctor in 1-2 days. If anything worsens please return to ER. FOLLOW-UP WITH PRIMARY CARE PROVIDER IN 1 TO 2 DAYS. TAKE MEDICATIONS DIRECTED HERE IN THE EMERGENCY ROOM. OKAY TO CONTINUE HOME MEDICATIONS UNLESS OTHERWISE DISCUSSED DURING YOUR VISIT IN THE EMERGENCY ROOM TODAY. RETURN TO YOUR NEAREST EMERGENCY ROOM IF SYMPTOMS WORSEN OR IF THERE IS NO IMPROVEMENT. CALL 911 IF YOU NEED IMMEDIATE ASSISTANCE. TAKE TYLENOL [id number] NEEDED AND IF NO CONTRAINDICATIONS ARE PRESENT. INCREASE ORAL HYDRATION. A WOUND CULTURE OR URINE CULTURE WAS ORDERED HERE IN THE EMERGENCY ROOM DEPARTMENT PLEASE FOLLOW-UP WITH PRIMARY CARE PROVIDER AND ADVISE THEM TO GET REPEAT PORTS FROM OUR FACILITY. IF YOU HAD ANY GAYATHRI WRAP/SPLINTS THAT WERE APPLIED HERE, PLEASE DO NOT REMOVE THEM UNTIL YOU SEE YOUR PRIMARY CARE OR SPECIALTY. Referrals: RODNEY FABIAN MD (PCP) Time of Disposition: 02:42 I have reviewed the case, and I agree with, Diagnosis and Plan CASTRO ANN NOHEMY Feb 09, 2025 17:49
[2025-02-09 19:44] LABS: IMMATURE GRANULOCYTE ABSOLUTE 0.05 K/uL (0-1); NUCLEATED RED BLOOD CELLS 0.0 % (0.0-0.19); PLATELET COUNT (AUTO) 342 K/uL (130-400); RED BLOOD CELL COUNT(AUTO) 4.84 MIL/uL (4.00-5.50); RED CELL DISTRIBUTION WIDTH 16.9 % (11.0-15.5); WHITE BLOOD COUNT (AUTO) 16.4 K/uL (4.8-10.8)
--- NOTE | 2025-02-09 19:49 | NUR ---
PATIENT NOT IN ED LOBBY WHEN CALLED. PATIENT LEFT WITHOUT BEING SEEN
[2025-02-09 19:54] LABS: CREATININE 0.6 mg/dL (0.5-1.0); GLOMERULAR FILTR. RATE CALC 130.0 mL/min (>90); GLUCOSE,RANDOM 106.0 mg/dL (70-105); SODIUM SERUM 141.0 mmol/L (136-145); UREA NITROGEN, BLOOD 13.0 mg/dL (7-18)
[2025-02-09 19:58] LABS: ASPARTATE AMINOTRANSFERASE 22.0 U/L (10-37); TOTAL PROTEIN, SERUM 8.0 g/dL (6.0-8.3)
[2025-02-09] MEDS: MAGNESIUM OXIDE 400 MG TABLET PO ONE (22:49)
[2025-02-09] MEDS: 0.9%NACL 1000ML 1,000 ML IV ONE (22:49)
[2025-02-09] MEDS: 0.9%NACL 1000ML 1,000 ML IV SCH (22:50)
[2025-02-09 22:55] LABS: APPEARANCE,URINE CLEAR (CLEAR); GLUCOSE, URINE (UA) NEGATIVE (NEGATIVE); LEUKOCYTE ESTERASE ,URINE NEGATIVE Leu/uL (NEGATIVE); NITRATE,URINE NEGATIVE (NEGATIVE); OCCULT BLOOD,URINE NEGATIVE (NEGATIVE)
[2025-02-09 22:58] LABS: ADD UA MICROSCOPIC YES
[2025-02-09 23:00] LABS: SQUAMOUS EPITHELIAL CELL,UR RARE /HPF (0-2)
--- NOTE | 2025-02-09 23:07 | NUR ---
CT SCAN AT THIS TIME.
[2025-02-09] MEDS ORDERED: IOHEXOL-350 75 ML VIAL IV ONE (23:09)
[2025-02-09 23:19] LABS: AMPHET/METH SCREEN,URINE NEGATIVE (NEGATIVE); BARBITURATE SCREEN, URINE NEGATIVE (NEGATIVE); CANNABINOID SCREEN,URINE NEGATIVE (NEGATIVE); COCAINE SCREEN,URINE NEGATIVE (NEGATIVE)
--- NOTE | 2025-02-10 01:02 | HMCIMG ---
EXAM: CT Abdomen and Pelvis with IV contrast CLINICAL HISTORY: Abdominal pain. TECHNIQUE: Thin collimated axial CT images of the abdomen and pelvis with intravenous contrast were obtained, with sagittal and coronal reformatted images also submitted. A CT scan is done according to ALARA (As Low As Reasonably Achievable). COMPARISON: None. FINDINGS: Unremarkable visualized lung parenchyma. No focal abnormality within the liver, gallbladder, pancreas, spleen, adrenals, or kidneys. There is no obvious bowel wall thickening. Bowel loops are normal in caliber without evidence of obstruction or ileus. The appendix is normal. There is no abnormality within the urinary bladder. Unremarkable reproductive organs. 1.7 cm corpus luteal cyst in the left ovary. Abdominal and pelvic vessels are patent. No lymphadenopathy. No free fluid. There is no acute osseous abnormality. IMPRESSIONS: No acute process in the abdomen or pelvis. 1.7 cm corpus luteal cyst in the left ovary. /Amandeep
[2025-02-10 02:38] VITALS: TEMP 100
[2025-02-10] MEDS ORDERED: ONDA-243 PO (02:43)
[2025-02-10] MEDS ORDERED: DICY20TA2 PO (02:43)
[2025-02-10 03:08] VITALS: BP 104/68; PULSE 99; RESP 18; TEMP 99.5; O2SAT 98
== END 2025-02-10 03:08 | disposition home or self-care (01) ==
LOC: EDH 17:32
DX: K52.9 Noninfective gastroenteritis and colitis, unspecified (principal); D72.829 Elevated white blood cell count, unspecified; R11.2 Nausea with vomiting, unspecified; Z88.1 Allergy status to other antibiotic agents
CPT/HCPCS: 99285; 74177; 96374; 96375; 80076; 83735; 80048; 80305; 84703; 83690; 85025; 87040 ×2; 83605; 81001; 36415; 96376; J7030 ×2; J2405 ×2; J2470; Q9967